=== PATIENT | female | born 1985 | race Caucasian/White ===

== ENCOUNTER 2018-03-31 13:39 | Emergency (ER) | payer BC, SELFPAY ==
[2018-03-31 13:39] VITALS: BP 148/97; PULSE 106; RESP 16; TEMP 37.1; O2SAT 98; BMI 22.8
--- NOTE | 2018-03-31 14:00 | NURSING ---
NO OLD EKGS
--- NOTE | 2018-03-31 14:00 | ED.RN ---
pt w/ c/o numbness and tingling to left arm. is able to move arm, skin is pink, warm and dry. radial pulse palpable and cap refill immediate
[2018-03-31 15:53] VITALS: BP 114/77; PULSE 60; RESP 16; O2SAT 96
[2018-03-31 16:22] LABS: Anion Gap 7 (5-15); BUN 13 mg/dL (7-18); BUN/Creat Ratio 19.1 RATIO (10-20); Calcium,Total 8.8 mg/dL (8.5-10.1); Chloride 109 mmol/L (98-107); Creatinine, Serum 0.68 mg/dL (0.55-1.02); EST Glomerular Filtration Rate 105 mL/min (>60); Est Glom Filt Rate - Afr Amer 127 mL/min (>60); Glucose 91 mg/dL (74-106); Sodium Level 140 mmol/L (136-145)
--- NOTE | 2018-03-31 16:36 | ED.VISSUMM ---
- ER Visit Summary Date of Service: 03/31/18 Chief Complaint: Total body paresthesia History of Present Illness: The patient is a 32 F who states while at work her feet became. The numbness fabrizio to the top of her head and every body part was numb. She said she had trouble walking because of the numbness. She denied headache. She denied double vision, blurred vision or loss of vision. She denies ringing in her ears. No trouble with speech or swallowing. She denied chest pain or palpitations. She denies shortness of breath, difficulty breathing, dyspnea on exertion or cough. She denied nausea, vomiting or diarrhea. She denies abdominal pain or back pain. She denied dysuria, frequency, urgency or hematuria. She denied any rash. She reports history of fibromyalgia. And she stated I have been fighting my fibromyalgia recently. He vocalized that she has been under significant stress. 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 Coworkers encouraged her to go to the emergency room. She looked up symptoms of stroke and because she had paresthesia which is a symptom she presents for evaluation. Physical Examination: There was a delay in seeing the patient. Patient was informed of the reason why. Pressure slightly related 140/97. Heart rate 106. Head is atraumatic normocephalic. Pupils are equal round reactive. Extraocular muscles are intact. TMs are pearly white with landmarks noted. Nares patent with no drainage. Posterior pharynx without erythema or exudate. Uvula is midline. There is no dysphonia or dysphasia. Trachea is midline. There is no stridor with auscultation of the neck. Heart is regular without murmur, gallop or rub. S1 and S2 are normal. Lungs are clear to auscultation with good movement of air bilaterally. Abdomen is soft nontender with normal bowel sounds. Patient is alert and oriented ?3. Motor is 5 over 5. Sensory is intact. DTRs are symmetric with no clonus or Babinski sign. Cranial 2 through 12 are intact. Cerebellar testing is normal. Gait was observed that she walked in triage to the room and is normal. Romberg test with eyes open and closes normal. Test Results: Electrode panel unremarkable Emergency Department Course and Treatment: Patient is taking herbal supplements. She was informed it may not be a prudent idea because they are not regulated and depending on country of origin may be contained additives that could cause harm. Treatment Plan: Appropriate home-going instructions and stress reduction Disposition: Discharged home with spouse Impression: Generalized paresthesia secondary to anxiety reaction This note was generated with [employer] dictation software. It may contain incorrect words, spelling, and punctuation that were not noted in review of the chart prior to signing ED Disposition - Plan for ED Patient: Disposition: Home or Assisted Living Chief Complaint: Numb/Ting Instructions: ED Paraesthesias, ED Stress React Referrals: Care Physician,No Primary [Primary Care Provider] - Veronica Oneil DO [STAFF PHYSICIAN] - 1-2 Weeks
== END 2018-03-31 16:50 | disposition home or self-care (01) ==
PROVIDERS: Emergency Provider Emergency Medicine
DX: F41.9 Anxiety disorder, unspecified (principal); R20.2 Paresthesia of skin; Z72.0 Tobacco use; M79.7 Fibromyalgia
CPT/HCPCS: 80048; 99282

== ENCOUNTER 2024-03-01 15:22 | Emergency (ER) | payer OTHER, SELFPAY ==
[2024-03-01 15:22] VITALS: BP 131/71; PULSE 73; RESP 16; TEMP 36.1; TEMP 36.2; O2SAT 100; BMI 21.5
--- NOTE | 2024-03-01 15:52 | EDS_ITS ---
HPI HPI - GI History of Present Illness Chief Complaint: Flank Pain Narrative Narrative: 38-year-old female presenting with left lower quadrant abdominal pain. Patient states that started this morning upon awakening. She states the severity waxes and wanes but her symptoms are sharp stabbing pain in the left lower quadrant. Later today it started radiating to the left flank and into the back. Denies any trauma. He states he did have a bowel movement today but did have one yesterday. She does not believe she is constipated severely but thought this might be constipation pain. The pain did not resolve. She went to urgent care where she was referred to the ER. Patient has no history of kidney stones in the past. Denies dysuria or hematuria. She does have some nausea when the pain is severe but no vomiting. No vaginal complaints. Patient states he has not no abdominal surgeries in the past. Patient states she has not on any control and it is possible she could be as she is sexually active and uses condoms with her significant other. Patient does have history of ovarian cysts although she does not believe this feels similar. She states that the pain is usually lower with her ovarian cyst. Patient denies any history of diverticulitis. PFSH PFSH Home Medications norgestimate 0.25 mg-ethinyl estradiol 35 mcg tablet (Sprintec (28)) 1 tab PO DAILY 03/31/18 [History Last Taken Unknown] hydrocodone-acetaminophen 5-325mg 5mg-325mg 1 tab PO Q6H 3 days #12 TABLETS 03/01/24 [Rx Last Taken Unknown] ondansetron 4 mg disintegrating tablet 4 mg PO Q8H PRN PRN Nausea #14 tabs 03/01/24 [Rx Last Taken Unknown] Allergy/AdvReac Type Severity Reaction Status Date / Time nystatin Allergy Rash Verified 03/31/18 13:41 Social History Smoking Status: Current every day smoker tobacco type: cigarettes ROS ROS ED Constitutional Constitutional ED: Denies chills, fever(s) or sweats Eyes Eyes: Denies blurry vision or change in vision ENT ENT ED: Denies ear pain or sore throat Cardiovascular Cardiovascular: Denies chest pain, palpitations or racing heartbeat Respiratory/Chest Respiratory/Chest: Denies cough, dyspnea or sputum Gastrointestinal Gastrointestinal: Reports abdominal pain and nausea; Denies constipation, diarrhea or vomiting Genitourinary Genitourinary ED: Denies dysuria, hematuria or urinary frequency Musculoskeletal Musculoskeletal: Denies arthralgias, myalgias or neck pain Integumentary Denies abscess, Abrasions or rash Neurologic Neurologic: Denies headache(s), paresthesias or weakness Psychiatric Psychiatric: Denies anxiety, depression, suicidal ideation or suicidal thoughts Endocrine Endocrinology: Denies polydipsia or polyuria EXAM Physical Exam Const Vital Signs: 03/01/24 15:22 03/01/24 15:22 03/01/24 17:22 Temperature 97.0 F L 97.1 F L 98.4 F Temperature Source Temporal Temporal Oral Pulse Rate 73 73 54 L Respiratory Rate 16 16 16 Blood Pressure 131/71 H 131/71 H 113/75 Blood Pressure Mean 91 91 87 Pulse Ox 100 100 98 Oxygen Delivery Method Room Air Room Air Room Air Positive well nourished General Appearance ED: NAD; Negative for pallor HEENT Reports moist mucous membranes normocephalic and atraumatic Eyes PERRL and EOMs intact bilaterally Resp normal respiratory effort Cardio regular rate and regular rhythm GI non-tender, non-distended and no masses Palpation: soft Back/Spine no CVA tenderness Extremity full ROM General Extremety ED: Negative for edema General Extremity: Negative for edema Neuro CN's II-XII intact bilaterally and moves all extremities Sensorium / Orientation: alert Psych mental status grossly normal Skin General Skin Exam: Negative for jaundice or pallor MDM MDM MDM Narrative Medical decision making narrative: 38-year-old female presenting with left-sided lower abdominal pain and left flank pain. Patient presenting with right flank pain. Differential includes colitis, diverticulitis, gastritis, constipation, UTI, pyelonephritis, renal calculi, ureteral calculi, bowel obstruction, malignancy, dehydration, electrolyte abnormalities, , ectopic , ovarian cyst, ovarian torsion. CBC will be obtained to assess white blood cell count, hemoglobin, platelets. BMP to assess renal function, electrolytes, glucose. Urinalysis to assess for UTI. hCG to assess for . Patient medicated with Toradol and Zofran. Reevaluation patient is doing well. CBC shows white blood cell count of 14.0. Hemoglobin 13.5. Renal function electrolytes within normal limits. Urinalysis negative for infection but does show occult blood. Discussed with the patient and we will get a CT of the abdomen pelvis without contrast. CT of the abdomen pelvis without contrast shows left-sided UVJ stone about 3 mm with left hydronephrosis and hydroureter. Patient will be given a prescription for Zofran and [place]. She can take ibuprofen or Tylenol if this is controlling her pain as she has not required much pain control here. She is given follow-up with urology. Return precautions discussed. Impression: 1. 3 mm left UVJ stone 2. Hematuria 3. Left-sided hydronephrosis 4. Left-sided hydroureter Lab Data Attestation: I reviewed the patient's lab results. Labs: Laboratory Results - last 24 hr 03/01/24 03/01/24 15:55 17:00 WBC 14.0 H RBC 4.23 Hgb 13.5 Hct 39.4 MCV 93.1 MCH 31.9 MCHC 34.3 RDW Std Deviation 42.5 RDW Coeff of Myke 12.4 Plt Count 249 MPV 9.3 Immature Gran % (Auto) 0.400 Neut % (Auto) 74.3 H Lymph % (Auto) 15.0 L Wood % (Auto) 9.4 Eos % (Auto) 0.4 Baso % (Auto) 0.5 Absolute Neuts (auto) 10.4 H Absolute Lymphs (auto) 2.10 Nucleated RBC % 0 Sodium 139 Potassium 3.7 Chloride 108 H Carbon Dioxide 23.0 Anion Gap 8 BUN 14 Creatinine 0.72 Estim Creat Clear Calc 82.15 Est GFR (MDRD) Af Amer 115 Est GFR (MDRD) Non-Af 95 BUN/Creatinine Ratio 19.5 Glucose 78 Calcium 8.7 Urine Color Yellow Urine Clarity Sl Cldy Urine pH 6.0 Ur Specific [place] 1.015 Urine Protein 15 H Urine Glucose (UA) Normal Urine Ketones Negative Urine Occult Blood 150 H Urine Nitrite Negative Urine Bilirubin Negative Urine Urobilinogen Normal Ur Leukocyte Esterase 25 H Urine RBC 5-10 SEEN Urine WBC 0-5 SEEN Ur Squamous Epith Cells 0-5 SEEN Amorphous Sediment 1+ URATE Urine Bacteria 0 SEEN Urine Mucus 0 SEEN Urine Test Negative Radiography Diagnostic Testing: Clinical Impression(s) from Imaging Studies Abdomen/Pelvis CT 03/01/24 16:32 IMPRESSION: Hydronephrosis of the left kidney and left hydroureter. Possible obstructive stone at the left UVJ of the urinary bladder. Mild pelvic fluid. Electronically Signed: Saleem Ham DO at 18:02 EDT Reading Location ID and State: [facility] [place] Tel [phone], Service support , Discharge Plan Triage Chief Complaint: Flank Pain ED Provider: Chandrakant Quijano Dx/Rx/DC Orders Instructions: ED Kidney Stone with Pain Prescriptions: New hydrocodone-acetaminophen 5-325 mg tablet 1 tab PO Q6H 3 Days Qty: 12 0RF ondansetron 4 mg tablet,disintegrating 4 mg PO Q8H PRN PRN (Reason: Nausea) Qty: 14 0RF No Action norgestimate-ethinyl estradiol [Sprintec (28)] 1 TABLET tablet 1 tab PO DAILY Patient Comments: Primary Care Provider: Claire Cleary Referrals: Taylor Dorsey MD [Med Staff - Active Staff] - 3-5 Days Claire Cleary MD [Primary Care Provider] - Disposition Disposition: Home, Self Care
[2024-03-01 16:01] LABS: Bacteria 0 SEEN /hpf (None Seen); Mucous, Urine 0 SEEN /hpf (<or=2+)
[2024-03-01 16:25] LABS: Color, Urine Yellow (Yellow); Glucose, Dipstick Normal (Normal); Ketone-Dipstick Negative (Negative); Leukocyte Esterase-Dipstick 25 /ul (Negative); Nitrite-Dipstick Negative (Negative); Occult Blood-Urine 150 /ul (Negative); Protein-Dipstick 15 mg/dl (Negative); Specific Gravity, Urine 1.015 (1.002-1.030); Urine Bilirubin Dipstick Negative (Negative); Urine Urobilinogen Normal (Normal)
--- NOTE | 2024-03-01 16:32 | CT_ITS ---
STUDY: CT ABDOMEN AND PELVIS WITHOUT CONTRAST REASON FOR EXAM: Female, 38 years old. Left flank pain RADIATION DOSAGE (If Supplied By Facility): CTDIvol = ( 5.29 ) mGy, DLP = ( 268.61 ) mGycm TECHNIQUE: Transaxial images were obtained from the dome of the diaphragm to the symphysis pubis without oral contrast, and without intravenous contrast. Sagittal and coronal images were reconstructed. Individualized dose optimization techniques were used for this CT. COMPARISON: None. FINDINGS: The visualized lung bases are unremarkable. The visualized portions of the heart are within normal limits. Normal liver. Normal gallbladder and extrahepatic biliary system. Normal spleen. Normal pancreas. Normal bilateral adrenal glands. Normal right kidney. Hydronephrosis of the left kidney and left hydroureter. Normal visualized stomach. Normal small intestine. Normal colon. The appendix is visualized and appears normal. Normal abdominal aorta. Normal inferior vena cava. Normal retroperitoneum. Possible obstructive 3 mm stone at the left UVJ of the urinary bladder. Mild pelvic fluid. Normal abdominal wall. Normal osseous structures. CT/Abdomen/Pelvis without Cont IMPRESSION: Hydronephrosis of the left kidney and left hydroureter. Possible obstructive stone at the left UVJ of the urinary bladder. Mild pelvic fluid. Electronically Signed: Saleem Ham DO at 18:02 EDT ,
[2024-03-01] MEDS: Ondansetron 4 MG/2 ML Vial IV (16:57)
[2024-03-01] MEDS: Ketorolac 15 MG/ML Vial IV (16:58)
[2024-03-01 17:04] LABS: Red Blood Cells-Urine 5-10 SEEN /hpf (0-5); Squamous Epithelial Cells - UA 0-5 SEEN /hpf (5-10); Urine Clarity Sl Cldy (Clear); White Blood Cells 0-5 SEEN /hpf (0-5)
[2024-03-01 17:05] LABS: Amorphous Sediment 1+ URATE; Internal QC Validated? YES +Cl - CLEAR BKGD; Pregnancy, Urine Negative Negative
[2024-03-01 17:16] LABS: Absolute Neutrophil Count 10.4 X10^3/uL (2.0-7.7); Basophil# 0.07 X10^3/uL; Basophil% 0.5 % (0-1); Eosinophil# 0.06 X10^3/uL; Eosinophils% 0.4 % (0-5); Hematocrit 39.4 % (37-47); Hemoglobin 13.5 g/dL (12.0-15.0); Mean Corp Hgb Conc 34.3 g/dL (32-36); Mean Corpuscular Hgb 31.9 pg (27.0-32.0); Mean Corpuscular Volume 93.1 fL (81-99); Mean Platelet Vol. 9.3 fl (6.2-12.0); Monocyte# 1.32 X10^3/uL; Monocyte% 9.4 % (0-10); NRBC Flagged by Analyzer 0 % (0-5); Neutrophil # 10.37 X10^3/uL (2.7-7.7); Neutrophil % 74.3 % (47-70); Platelet Count 249 K/mm3 (150-450); RBC Distribution Width CV 12.4 % (11.6-14.6); RBC Distribution Width SD 42.5 fl (35.1-43.9); Red Blood Count 4.23 M/mm3 (4.2-5.4)
[2024-03-01 17:22] VITALS: BP 113/75; PULSE 54; RESP 16; TEMP 36.9; O2SAT 98
[2024-03-01 17:37] LABS: Anion Gap 8 (5-15); BUN 14 mg/dL (7-18); BUN/Creat Ratio 19.5 RATIO (10-20); Calcium,Total 8.7 mg/dL (8.5-10.1); Chloride 108 mmol/L (98-107); Creatinine, Serum 0.72 mg/dL (0.55-1.02); EST Glomerular Filtration Rate 95 mL/min (>60); Est Glom Filt Rate - Afr Amer 115 mL/min (>60); Estimated Creatinine Clearance 82.15 ml/min; Glucose 78 mg/dL (74-106); Potassium 3.7 mmol/L (3.5-5.1); Sodium Level 139 mmol/L (136-145)
[2024-03-01 18:44] VITALS: BP 113/75; PULSE 54; RESP 16; TEMP 36.9; O2SAT 98
== END 2024-03-01 18:45 | disposition home or self-care (01) ==
PROVIDERS: Emergency Provider Student in an Organized Health Care Education/Training Program; PCP Internal Medicine; Visit Provider Student in an Organized Health Care Education/Training Program
DX: N13.2 Hydronephrosis with renal and ureteral calculous obstruction (principal); N13.4 Hydroureter; F17.210 Nicotine dependence, cigarettes, uncomplicated; R31.9 Hematuria, unspecified; R11.0 Nausea
CPT/HCPCS: 74176; 80048; 81001; 81025; 85025; 96374; 96375; 99283; A4216; J2405